=== PATIENT | female | born 1995 | race Asian ===

== ENCOUNTER 2017-04-21 03:54 | Observation (INO) | payer OTHER ==
[~2017-04-21] VITALS: Ht 160 cm; Wt 56.9 kg
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
--- NOTE | ~2017-04-21 | ER ---
[facility] 21 [facility] [address] ROOM: [place] [address] LOCATION: [facility] ADMIT DATE: 04/21/2017 ER/Outpatient Report DISCHARGE DATE: FAMILY PHYSICIAN: Herbert Joseph MD ATTENDING PHYSICIAN: Marely Garnett Admission date and time documented on the medical record. I saw the patient at 0405 hours. CHIEF COMPLAINT: Suicidal ideation. HISTORY OF PRESENT ILLNESS: This patient is a 21-year-old female, who was brought to the emergency room for evaluation because of suicidal ideation. She has stated "my life sucks, I wanted to end." She has been drinking alcohol tonight. Smells of alcoholic beverage and is intoxicated. Denies any recent cold, coughs, flus, fever, chills, or sweats. She has no chest pain, shortness of breath, or abdominal pain. She has not had any nausea, vomiting, diarrhea, or incontinence of stool or urine. No fall or trauma. No headache; eyes, ears, nose, throat, neck, or spine pain. No joint or muscle swelling, redness, or pain. No skin eruptions or rash. No history of neuro changes, endocrine problems. Does have a history of depression, is on antidepressant. She does have a suicidal plan, not totally reveal to us. Does involve alcohol intake. HOME MEDICATIONS: See attached medication list. ALLERGIES: NONE. SOCIAL HISTORY: Nonsmoker. Does drink quite often, usually hard liquor. SIGNIFICANT PAST MEDICAL HISTORY: Alcohol abuse, depression. OPERATIONS: None. REVIEW OF SYSTEMS: All systems reviewed by me are negative with the exception of those discussed in the history of present illness. PHYSICAL EXAMINATION: PATIENT'S NAME: [facility] AGE: 21 Y [address] ROOM: [place], [place] [address] LOCATION: [facility] ADMIT DATE: 04/21/2017 ER/Outpatient Report DISCHARGE DATE: FAMILY PHYSICIAN: Herbert Joseph MD ATTENDING PHYSICIAN: Marely Garnett VITAL SIGNS: Temperature 96.7, pulse 89, respirations 18, blood pressure 136/95, O2 sat on room air was 96%. HEAD: Normocephalic. EYES, EARS, NOSE, THROAT: Clear. Breath smells of alcoholic beverage. TEETH/JAW: Intact. NECK: No nuchal rigidity. No thyromegaly or cervical adenopathy. SPINE: Nontender. No deformity. LUNGS: Clear. HEART: Regular. Pulses are palpable. No chest wall or ribcage pain to palpation. ABDOMEN: Soft. Active bowel tones. No distention. No organomegaly or abnormal mass palpable. No CVA tenderness. EXTREMITIES: Intact. NEUROVASCULAR: Intact other than she is intoxicated. SKIN: Clear. PSYCH: The patient is depressed, tearful. Has been having suicidal ideation. PERTINENT LABORATORY DATA: CMS was normal except for a slight low potassium of 3.6, elevated chloride of 111, elevated glucose 114, low calcium of 8.2. Medical blood alcohol 0.262. Acetaminophen, salicylate, serum levels were normal. Quantitative serum hCG was negative. Urine drug screen is clear. EKG showed sinus rhythm. No acute ST elevation, ischemic change, or arrhythmia. White count is 6800, 57 segs, 36 lymphs, 6 monos, hemoglobin was 14.5, hematocrit 42.8, platelet count is 262,000. EMERGENCY DEPARTMENT COURSE: I did give the patient IV banana bag, then normal saline. Gave her Zofran IV for nausea and vomiting. IMPRESSION: 1. Suicidal ideation. 2. Acute alcohol intoxication and alcohol abuse. 3. History of depression. PLAN: Discussed the patient with Dr. Crow, the hospitalist. Dr. Crow is coming to the emergency room to evaluate the patient and admit the patient for detox. The patient will then need to be transferred to Inpatient Therapy [facility]. MARELY GARNETT MD PATIENT'S NAME: SHERI GALVIN [facility] AGE: 21 Y [address] ROOM: [place], [place] [address] LOCATION: [facility] ADMIT DATE: 04/21/2017 ER/Outpatient Report DISCHARGE DATE: FAMILY PHYSICIAN: Herbert oJseph MD ATTENDING PHYSICIAN: Marely Garnett SDS/modl /[id number] d: 04/21/17 0545 t: 04/21/17 1820, OUTPATIENT REPORT
--- NOTE | ~2017-04-21 | HP ---
[facility] AGE[facility] 21 Y [address] ROOM: [place] [address] LOCATION: [facility] [place] ADMIT DATE: 04/21/2017 History & Physical DISCHARGE DATE: FAMILY PHYSICIAN: Margot Joseph MD ATTENDING PHYSICIAN: HENRY WOO DATE OF SERVICE: CHIEF COMPLAINT: Acute alcohol intoxication and suicidal ideation. HISTORY OF PRESENT ILLNESS: The patient is a 21-year-old female who presented to the emergency room early this morning with acute alcohol intoxication. She states that "my life sucks, I wanted to end." She has been drinking through the night, she states primarily rum. She is unable to give an exact amount of how time she has had to drink. She has no prior history of any significant continuous alcohol intake, just mostly on weekends since her 21st birthday. She has been struggling with depression. I saw her in the office on 03/22/2017 with complaints of depression. She was not suicidal at that point and was placed on sertraline. She has been taking that for a month now, really does not feel like this made much of a difference at all and continues to struggle from a depression standpoint. Apparently, she was hospitalized by the hospitalist, which I am not sure as our service was not contacted as I specifically was on- call last night. PAST MEDICAL HISTORY: Significant for a heart murmur that she has had as well as depression. CHRONIC MEDICATIONS: 1. Depo-Provera. 2. Sertraline 50 mg q.h.s. ALLERGIES: NO KNOWN MEDICAL ALLERGIES. SURGICAL HISTORY: None. FAMILY HISTORY: Significant family history of neurofibromatosis. REVIEW OF SYSTEMS: She denies any chest pain, pressure, shortness of breath, orthopnea, PND. No melena, hematochezia, or bright red blood per rectum. No dysuria, frequency, [facility] AGE: 21 Y [address] ROOM: [place] [address] LOCATION: [facility] [place] ADMIT DATE: 04/21/2017 History & Physical DISCHARGE DATE: FAMILY PHYSICIAN: Margot Joseph MD ATTENDING PHYSICIAN: HENRY WOO or urgency. She otherwise is stable except for her depression issues. She has never had any withdrawal symptoms in the past from alcohol. PHYSICAL EXAMINATION: VITAL SIGNS: Weight 59 kg, blood pressure 136/93, pulse 89, respirations 18, temperature 96.7, O2 saturation 96% on room air. GENERAL: The patient is nontoxic-appearing female in no acute distress. HEENT: Head: Normocephalic and atraumatic. Ears: TMs are clear and intact bilaterally. Nose is patent. Throat clear. NECK: Supple without lymphadenopathy, JVD, thyromegaly, or bruits. HEART: Regular rate and rhythm with grade 1-2/6 systolic murmur. LUNGS: Clear to auscultation bilaterally without wheezes, rhonchi, or rales. ABDOMEN: Soft, nontender, nondistended. Bowel sounds are positive. There is no hepatosplenomegaly, no guarding, or rebound. EXTREMITIES: No clubbing, cyanosis, or edema. NEUROLOGIC: Awake, alert, and oriented x3. DTRs are +2/4 and equal bilaterally. Cranial nerves 2 through 12 are grossly intact. No motor or sensory deficits. LABORATORY DATA: Her white cell count is 6.8, hemoglobin 14.5, hematocrit 42.8%, platelet count 262,000. Her sodium 145, potassium 3.6, chloride 111, CO2 27, BUN 8, creatinine 0.8, glucose 114. Drugs of abuse screen was negative. Beta hCG is less than 1. Salicylate and Tylenol levels were both normal. Alcohol level is 0.262. ASSESSMENT AND PLAN: A 21-year-old white female with the following problem list: 1. Acute alcoholic intoxication. Clearly, she is doing better from that this morning. She was given some IV fluids including a banana bag. She has had no sign of any withdrawal in the past and nor is she at high risk for doing so with her limited history. 2. Major depression with active suicidal ideation. She is not currently suicidal this morning. This certainly may pose gestures last night. We will have Psychiatry see her as a consult and decide where to go from there. 3. Contraception with Depo-Provera. She is clinically stable on that. Both her and her family voiced understanding of that plan. MARGOT JOSEPH MD TAB/modl PATIENT'S NAME: SHERI [facility] AGE: 21 Y [address] ROOM: [address] [address] LOCATION: [facility] [place] ADMIT DATE: 04/21/2017 History & Physical DISCHARGE DATE: FAMILY PHYSICIAN: Margot Joseph MD ATTENDING PHYSICIAN: HENRY WOO /[id number] D: [id number] T: [id number] HISTORY & PHYSICAL
[2017-04-21 04:35] LABS: BASOPHIL % 0.4 %; EOSINOPHIL % 0.3 %; HEMATOCRIT 42.8 % (33.0-46.0); HEMOGLOBIN 14.5 g/dL (11.0-15.0); IMMATURE GRANULOCYTE % 0.4 %; LYMPHOCYTE # 2.5 K/uL (0.8-4.0); LYMPHOCYTE % 36.4 %; MCH 30.1 pg (27.0-34.0); MCHC 33.9 gm/dL (32.0-36.5); MONOCYTE # 0.4 K/uL (0.0-1.0); MONOCYTE % 5.7 %; NEUTROPHIL # (ANC) 3.9 K/uL (1.8-7.8); NEUTROPHIL % 56.8 %; NRBC % 0 /100WBC (0-0.00); PLATELET COUNT 262 K/uL (150-450); RBC 4.81 M/uL (3.50-5.00); RDW-CV 12.5 % (11.9-14.6); WBC 6.8 K/uL (4.0-11.0)
[2017-04-21 04:37] LABS: COCAINE NEGATIVE (NEGATIVE); OPIATES NEGATIVE (NEGATIVE)
[2017-04-21 04:38] LABS: AMPHETAMINE NEGATIVE (NEGATIVE); BARBITURATE NEGATIVE (NEGATIVE)
[2017-04-21 05:00] LABS: ALK PHOS 83 IU/L (33-138); ALT 24 IU/L (12-78); ANION GAP 10.6 (10.0-19.0); AST 20 IU/L (10-40); BLOOD UREA NITROGEN 8 mg/dL (6-24); CALCIUM 8.2 mg/dL (8.5-10.5); CHLORIDE 111 mMol/L (96-110); CO2 27 mMol/L (22-32); CREATININE 0.8 mg/dL (0.5-1.1); POTASSIUM 3.6 mMol/L (3.7-5.1); SODIUM 145 mMol/L (135-145); TOTAL BILIRUBIN 0.7 mg/dL (0.0-1.5); TOTAL PROTEIN 7.4 g/dL (6.0-8.4)
[2017-04-21] MEDS ORDERED: ZOLOFT50 MG PO (06:42)
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
--- NOTE | 2017-04-21 13:12 | NUR ---
Patient is alert and oriented x3. VSS and on RA. IV removed. Denies pain. Mother present for dimissal info. Holding the zoloft. General discharge information given, verbalized understanding. States she will go home and take a shower and then go to [facility] for admittance. Mother will take the patient there. NO EPC. Dr. Joseph okjennifer to d/c. Denies pain. Ambulated the patient to the front entrance for discharge.
== END 2017-04-21 13:00 | disposition disaster alternative care site (69) ==
LOC: GMED 03:54 → GMSU 05:41
PROVIDERS: Emergency Medicine; ADMIT Internal Medicine
DX: F10.129 Alcohol abuse with intoxication, unspecified (principal); F32.9 Major depressive disorder, single episode, unspecified; R45.851 Suicidal ideations; Y90.8 Blood alcohol level of 240 mg/100 ml or more; Z79.899 Other long term (current) drug therapy
CPT/HCPCS: G0378; G0480; J1885; J2405; J3411; J7030

== ENCOUNTER → 2017-04-21 | Emergency (ER) | payer OTHER ==
[~2017-04-21] MED LIST: ZOLOFT50 MG PO
== END | disposition disaster alternative care site (69) ==
LOC: GAMB 02:51
DX: F10.129 Alcohol abuse with intoxication, unspecified (principal); R47.81 Slurred speech